=== PATIENT | female | born 1955 | race Caucasian/White ===

== ENCOUNTER 2018-08-05 06:40 | Day surgery (SDC) | payer BC ==
[~2018-08-05] VITALS: Ht 149.9 cm; Wt 97.5 kg
[~2018-08-05 06:40] MED LIST: ALEVE220 MG PO; ASPIRIN EC325 MG PO; HYDROCODON-ACE1 EAC8 PO; NON-ASPIRIN EX500 MG PO; NORCO 5-325 TA1 EACH PO; VICODIN 5-5001 EACH PO
[2018-08-05] MEDS ORDERED: COREG6.25 MG PO (06:59)
[2018-08-05] MEDS ORDERED: LOSARTAN-HCTZ1 EACH PO (06:59)
--- NOTE | 2018-08-05 08:56 | NUR ---
08/05/18 0856 Sheets,Huyen 0839 PT ARRIVED TO PACU AWAKE OFF AND ON, PT WAKES TO VERBAL STIMULI. IV IN RIGHT ARM SUSPECTED INFILTRATION, RN TO MONITOR IV AREA AND SUDATION LEVEL. OTHER IV ATTEMPTS UNSUCCESSFUL, NO EGD OR COLONOSCOPY DONE TODAY. 0850 PT ALSEEP AND SNORING NOTED. PT REPORTS SMALL AMOUNT OF PAIN AT IV SITE IN RIGHT UPPER ARM. NO SWELLING OR BRUISING NOTED AT IV SITE. 0855 PT UNABLE TO STAY AWAKE, PT SITTING IN SEMI FOWLERS AND LARGE AMOUNT OF SNORING NOTED.
--- NOTE | 2018-08-05 09:48 | NUR ---
CALL LIGHT W/IN REACH. CONTINUOUS PULSE OXIMETER IN PLACE. ICED WATER GIVEN.
--- NOTE | 2018-08-05 10:52 | NUR ---
LE 1015: PATIENT'S DAUGHTER PRESENTS TO THE NURSE'S STATION AND ASKS WHEN THE PATIENT IS ABLE TO GET DRESSED. I AM IN TO ASSESS THE PATIENT. PATIENT IS SITTING UP IN BED AND REQUESTS DISCHARGE. DISCHARGE INSTRUCTIONS ARE GIVEN AND PATIENT AND HER DAUGHTER BOTH VERBALIZE UNDERSTANDING. PATIENT IS GETTING DRESSED IN PRESENCE OF HER DAUGHTER. PATIENT TRANSFERS HERSELF TO AND THEN TO PERSONAL VEHICLE AND TOLERATES THAT WELL.
--- NOTE | 2018-08-05 14:07 | NUR ---
PT SEEMS ALERT, ORIENTED AND SUPPORTED BY HER DAUGHTER PAUL. PT MERELY TOLERATED PREP DAY, FIRST SCOPES. PT PLEASANT, HAD FEW QUESTIONS AND DID REQUEST PRAYER. WILL FOLLOW NEEDED
== END 2018-08-05 10:15 | disposition home or self-care (01) ==
LOC: OPS 06:40 → DS 06:40 → OPS 09:45 → DS 09:45 → OPS 10:15
DX: K62.5 Hemorrhage of anus and rectum (principal); R19.7 Diarrhea, unspecified; B20 Human immunodeficiency virus [HIV] disease; I10 Essential (primary) hypertension; E66.9 Obesity, unspecified; Z68.42 Body mass index [BMI] 45.0-49.9, adult; Z53.8 Procedure and treatment not carried out for other reasons
CPT/HCPCS: 99153; G0500; J2250; J3010; J7120

== ENCOUNTER 2019-02-23 15:57 | Emergency (ER) | payer BC ==
[~2019-02-23] VITALS: Ht 149.9 cm; Wt 102.1 kg
--- OUTSIDE RECORDS SUMMARY | ~2019-02-23 | XMS | Encounter Summary ---
Demographics + + + | Address | [address] | | | [place] [address] | + + + | Home Phone | | + + + | Preferred Language | Unknown | + + + | Marital Status | Unknown | + + + | Rastafarian Affiliation | Unknown | + + + | Race | Unknown | + + + | Ethnic Group | Unknown | + + + Author + + + | Author | [facility] | | | and [place] | + + + | Organization | [facility] | | | and [place] | + + + | Address | Unknown | + + + | Phone | Unavailable | + + + Care Team Providers + +------+ + | Care Home Teaching Gr[employer] 8 Teacher Name | Role | Phone | + +------+ + | Ronnie Treadwell MD | PCP | | + +------+ + Reason for Visit + + + | Reason | Comments | + + + | Care Coordination | F/U Appt and Orders | + + + Encounter Details +--------+ + + + + | Date | Type | Department | Care Team | Description | +--------+ + + + + | 02/14/ | Telephone | [facility] | Carol Canales, | Care Coordination | | 2020 | | INFECTIOUS DISEASE | Hotel Yardperson | (F/U Appt and Orders | | | | [address] | | ) | | | | [place] | | | | | | [address] | | | | | | [phone] | | | +--------+ + + + + Social History + +-------+ +--------+------+ | Tobacco Use | Types | Packs/Day | Years | Date | | | | | Used | | + +-------+ +--------+------+ | Former Smoker | | 1 | | | + +-------+ +--------+------+ + + + | Sex Assigned at | Date Recorded | | | | + + + | Not on file | | + + + + + + + | Job Start Date | Occupation | Industry | + + + + | Not on file | Not on file | Not on file | + + + + + + + + | Travel History | Travel Start | Travel End | + + + + + + | No recent travel history available. | + + documented as of this encounter Plan of Treatment Not on filedocumented as of this encounter Visit Diagnoses Not on filedocumented in this encounter"
--- OUTSIDE RECORDS SUMMARY | ~2019-02-23 | XMS | Encounter Summary ---
Demographics + + + | Address | [address] | | | [place] [address] | + + + | Home Phone | | + + + | Preferred Language | Unknown | + + + | Marital Status | Unknown | + + + | Moravian Affiliation | Unknown | + + + | Race | Unknown | + + + | Ethnic Group | Unknown | + + + Author + + + | Author | [facility] | | | and [place] | + + + | Organization | [facility] | | | and [place] | + + + | Address | Unknown | + + + | Phone | Unavailable | + + + Care Team Providers + +------+ + | Care Physiology Teacher Name | Role | Phone | + +------+ + | Ronnie Treadwell MD | PCP | | + +------+ + Reason for Visit +---------+ + | Reason | Comments | +---------+ + | Results | Lab Results/ US STAT Order | +---------+ + Encounter Details +--------+ + + + + | Date | Type | Department | Care Team | Description | +--------+ + + + + | 02/03/ | Telephone | [facility] | Carol Canales, | Results (Lab | | 2019 | | INFECTIOUS DISEASE | Steel Rod Buster | Results/ US STAT | | | | [address] | | Order ) | | | | [place] | | | | | | [address] | | | | | | [phone] | | | +--------+ + + + [...]
--- OUTSIDE RECORDS SUMMARY | ~2019-02-23 | XMS | Encounter Summary ---
Demographics + + + | Address | [address] | | | [place] [address] | + + + | Home Phone | | + + + | Preferred Language | Unknown | + + + | Marital Status | Unknown | + + + | Hindu Affiliation | Unknown | + + + | Race | Unknown | + + + | Ethnic Group | Unknown | + + + Author + + + | Author | [facility] | | | and [place] | + + + | Organization | [facility] | | | and [place] | + + + | Address | Unknown | + + + | Phone | Unavailable | + + + Care Team Providers + +------+ + | Care Fuel Storage Technician Name | Role | Phone | + [...] + + | 02/03/ | Telephone | [facility] | Carol Canales, | Results (Lab | | 2019 | | INFECTIOUS DISEASE | Production Machinist | Results/ US STAT | | | | [address] | | Order ) | | | | [place] | | | | | | [address] | | | | | | [phone] | | | +--------+ + + + [...]
--- OUTSIDE RECORDS SUMMARY | ~2019-02-23 | XMS | Encounter Summary ---
Demographics + + + | Address | [address] | | | [place] [address] | + + + | Home Phone | | + + + | Preferred Language | Unknown | + + + | Marital Status | Unknown | + + + | Jehovah'S Witness Affiliation | Unknown | + + + | Race | Unknown | + + + | Ethnic Group | Unknown | + + + Author + + + | Author | [facility] | | | and [place] | + + + | Organization | [facility] | | | and [place] | + + + | Address | Unknown | + + + | Phone | Unavailable | + + + Care Team Providers + +------+ + | Care Lockstitch Front Maker Name | Role | Phone | + +------+ + | Ronnie Treadwell MD | PCP | | + +------+ + Encounter Details +--------+ + + + + | Date | Type | Department | Care Team | Description | +--------+ + + + + | 02/04/ | Orders Only | [facility] | Ronnie Treadwell V, | | | 2017 | | CONVERSION [address] | MD [address] | | | | | [address] | [place], [place] | | | | | [place], [place] | [address] | | | | | [address] | | | | | | [phone] | | | +--------+ + + + + Social History + +-------+ +--------+------+ | Tobacco Use | Types | Packs/Day | Years | Date | | | | | Used | | + +-------+ +--------+------+ | Never Assessed | | | | | + +-------+ +--------+------+ + [...] Not on filedocumented as of this encounter Procedures + +--------+ + + + | Procedure Name | Priori | Date/Time | Associated Diagnosis | Comments | | | ty | | | | + +--------+ + + + | ECHO INTERPRETATION | Routin | 02/04/2018 | | Results for this | | OF OUTSIDE FILMS | e | 1:57 PM | | procedure are in the | | | | PST | | results section. | + +--------+ + + + documented in this encounter Results ECHO Interpretation of Outside Films (02/04/2018 1:57 PM PST) + + | Specimen | + + | | + + + + + | Impressions | Performed At | + + + | 1. The left ventricle is normal in size, wall thickness and systolic | | | function EF 65-70%. 2. The right ventricle is normal in size and | | | function. 3. No significant valvular pathology. 4. There is no | | | pericardial effusion. | | + + + + + + | Narrative | Performed At | + + + | Patient Name: Sayra Walton Date of : 1955 | | | Performing Physician: Jovan Rangel | | | | | | INDICATIONS Valvular heart disease CONCLUSIONS | | | 1. The left ventricle is normal in size, wall thickness | | | and systolic function EF 65-70%. 2. The right ventricle is normal in | | | size and function. 3. No significant valvular pathology. 4. There is | | | no pericardial effusion. FINDINGS -------- ECG rhythm: Sinus | | | rhythm. Study: A 2-dimensional transthoracic echocardiogram with | | | m-mode, spectral and color flow Doppler was perfomed. Study: This was | | | a technically adequate study. Left Ventricle: Overall left | | | ventricular systolic function is normal with, an EF between 65 - 70 %. | | | Left Ventricle: The left ventricle cavity size is normal. Left | | | Ventricle: Left ventricular wall thickness is normal. Left Ventricle: | | | No regional wall motion abnormalities. Left Ventricle: The diastolic | | | filling pattern is normal for the age of the patient. Right | | | Ventricle: The right ventricle is normal in size and function. Left | | | Atrium: The left atrium is normal in size. Right Atrium: The right | | | atrium is normal in size. Aortic Valve: There is mild aortic valve | | | sclerosis without stenosis. Aortic Valve: There is no evidence of | | | aortic regurgitation. Aortic Valve: There is no evidence of aortic | | | stenosis. Aortic Valve: Aortic valve is mildly thickened. Mitral | | | Valve: The mitral valve is normal. Mitral Valve: There is trace/mild | | | mitral regurgitation. Tricuspid Valve: The tricuspid valve appears | | | structurally normal. Tricuspid Valve: The poor TR signal prevents | | | accurate estimation of pulmonary pressures. Pulmonic Valve: The | | | pulmonic valve is normal. Pulmonic Valve: No significant valvular | | | pathology. Pericardium: There is no pericardial effusion. | | | Pericardium: No pleural effusion seen. IVC/Hepatic Veins: The IVC is | | | normal size (1.5-2.5cm) and collapses >50% with sniff, consistent with | | | central venous pressures of 5-10mmHg. Aorta: The aortic root, | | | ascending aorta and aortic arch are normal in size. MEASUREMENTS | | | Ao asc: 3.34 cm Ao Diam: 3.37 cm Ao sinus: | | | 2.[address] junct: 2.78 cm IVC: 1.95 cm LA Major: 4.56 | | | cm EDV(Teich): 108.32 ml IVSd: 0.94 cm LVIDd: 4.81 cm | | | LVPWd: 0.80 cm LVOT Area: 3.55 cm2 LVOT Diam: 2.12 cm %FS: | | | 36.51 % EF(Teich): 66.17 % ESV(Teich): 36.64 ml LVIDs: | | | 3.05 cm SV(Teich): 71.68 ml RA Major: 4.48 cm RV Major: | | | 8.40 cm RV Minor: 3.31 cm RVIDd: 2.99 cm LVEF MOD A2C: | | | 69.81 % SV MOD A2C: 60.02 ml LVEF MOD A4C: 69.44 % SV MOD | | | A4C: 54.93 ml EF Biplane: 69.41 % LVEDV MOD BP: 84.25 ml | | | LVESV MOD BP: 25.76 ml LVEDV MOD A2C: 85.97 ml LVLd A2C: | | | 8.60 cm LVEDV MOD A4C: 79.09 ml LVLd A4C: 9.03 cm LVESV MOD | | | A2C: 25.95 ml LVLs A2C: 7.03 cm LVESV MOD A4C: 24.16 ml | | | LVLs A4C: 7.50 cm LAESV(A-L): 37.24 ml LAESV Index (A-L): | | | 19.60 ml/m2 LAAs A2C: 12.24 cm2 LAESV A-L A2C: 29.98 ml LALs | | | A2C: 4.24 cm LAAs A4C: 15.20 cm2 LAESV A-L A4C: 39.10 ml | | | LALs A4C: 5.02 cm RAAs: 12.16 cm2 RAESV A-L: 28.10 ml | | | RAESV MOD: 27.02 ml RALs: 4.46 cm TAPSE: 3.02 cm AV maxPG: | | | 15.90 mmHg AV meanP.64 mmHg AV Vmax: 1.99 m/s AV | | | Vmean: 1.27 m/s AV VTI: 37.73 cm ROBERT Vmax: 1.98 cm2 ROBERT | | | (VTI): 2.21 cm2 AVAI Vmax: 0.00 cm2/m2 AVAI (VTI): 0.00 | | | cm2/m2 LVOT maxP.95 mmHg LVOT meanP.12 mmHg LVSI | | | Dopp: 44.01 ml/m2 LVSV Dopp: 83.63 ml LVOT Vmax: 1.11 m/s | | | LVOT Vmean: 0.84 m/s LVOT VTI: 23.55 cm MV A Mg: 0.96 m/s | | | MV Dec Rush: 2.58 m/s2 MV DecT: 324.80 ms MV E Mg: 0.83 | | | m/s MV E/A Ratio: 0.86 MV PHT: 94.19 ms MVA By PHT: 2.33 | | | cm2 Septal e': 0.04 m/s Septal E/e': 19.65 Lateral e': | | | 0.05 m/s Lateral E/e': 16.27 RAP: 5 mmHg RVSP: 25.06 mmHg | | | TR maxP.06 mmHg TR Vmax: 2.23 m/s House Superintendent: REINALDO | | | Authenticated by: Jovan Rangel Report Date/Time: 02-11-2018 14:45:5 | | | | | + + + + + | Procedure Note | + + | Ben Suero Conversion - 09/30/2018 4:51 PM PDT Patient Name: Ranjeet Walton of | | : 1955 Performing Physician: Jovan | | [place] INDICATIONS------ | | -----Valvular heart disease CONCLUSIONS 1. The left ventricle is normal in | | size, wall thickness and systolic function EF 65-70%.2. The right ventricle is normal in | | size and function.3. No significant valvular pathology.4. There is no pericardial | | effusion. FINDINGS--------ECG rhythm: Sinus rhythm.Study: A 2-dimensional transthoracic | | echocardiogram with m-mode, spectral and color flow Doppler was perfomed.Study: This was | | a technically adequate study.Left Ventricle: Overall left ventricular systolic function | | is normal with, an EF between 65 - 70 %.Left Ventricle: The left ventricle cavity size | | is normal.Left Ventricle: Left ventricular wall thickness is normal.Left Ventricle: No | | regional wall motion abnormalities.Left Ventricle: The diastolic filling pattern is | | normal for the age of the patient.Right Ventricle: The right ventricle is normal in size | | and function.Left Atrium: The left atrium is normal in size.Right Atrium: The right | | atrium is normal in size.Aortic Valve: There is mild aortic valve sclerosis without | | stenosis.Aortic Valve: There is no evidence of aortic regurgitation.Aortic Valve: There | | is no evidence of aortic stenosis.Aortic Valve: Aortic valve is mildly thickened.Mitral | | Valve: The mitral valve is normal.Mitral Valve: There is trace/mild mitral | | regurgitation.Tricuspid Valve: The tricuspid valve appears structurally normal.Tricuspid | | Valve: The poor TR signal prevents accurate estimation of pulmonary pressures.Pulmonic | | Valve: The pulmonic valve is normal.Pulmonic Valve: No significant valvular | | pathology.Pericardium: There is no pericardial effusion.Pericardium: No pleural effusion | | seen.IVC/Hepatic Veins: The IVC is normal size (1.5-2.5cm) and collapses >50% with | | sniff, consistent with central venous pressures of 5-10mmHg.Aorta: The aortic root, | | ascending aorta and aortic arch are normal in size. MEASUREMENTS Ao asc: | | 3.34 cmAo Diam: 3.37 cmAo sinus: 2.[address] junct: 2.78 cmIVC: 1.95 cmLA | | Major: 4.56 cmEDV(Teich): 108.32 mlIVSd: 0.94 cmLVIDd: 4.81 cmLVPWd: 0.80 | | cmLVOT Area: 3.55 [id number] Diam: 2.12 cm%FS: 36.51 %EF(Teich): 66.17 %ESV(Teich): | | 36.64 mlLVIDs: 3.05 cmSV(Teich): 71.68 mlRA Major: 4.48 cmRV Major: 8.40 cmRV | | Minor: 3.31 cmRVIDd: 2.99 cmLVEF MOD A2C: 69.81 %SV MOD A2C: 60.02 mlLVEF MOD | | A4C: 69.44 %SV MOD A4C: 54.93 mlEF Biplane: 69.41 %LVEDV MOD BP: 84.25 mlLVESV | | MOD BP: 25.76 mlLVEDV MOD A2C: 85.97 mlLVLd A2C: 8.60 cmLVEDV MOD A4C: 79.09 | | mlLVLd A4C: 9.03 cmLVESV MOD A2C: 25.95 mlLVLs A2C: 7.03 cmLVESV MOD A4C: 24.16 | | mlLVLs A4C: 7.50 cmLAESV(A-L): 37.24 mlLAESV Index (A-L): 19.60 ml/m2LAAs A2C: | | 12.24 [id number] A-L A2C: 29.98 mlLALs A2C: 4.24 cmLAAs A4C: 15.20 [id number] A-L A4C: | | 39.10 mlLALs A4C: 5.02 cmRAAs: 12.16 [id number] A-L: 28.10 mlRAESV MOD: 27.02 | | mlRALs: 4.46 cmTAPSE: 3.02 cmAV maxP.90 mmHgAV meanP.64 mmHgAV Vmax: | | 1.99 m/Junior Vmean: 1.27 m/Junior VTI: 37.73 cmAVA Vmax: 1.98 cm2AVA (VTI): 2.21 | | [id number] Vmax: 0.00 cm2/m2AVAI (VTI): 0.00 cm2/m2LVOT maxP.95 mmHgLVOT meanPG: | | 3.12 mmHgLVSI Dopp: 44.01 ml/m2LVSV Dopp: 83.63 mlLVOT Vmax: 1.11 m/sLVOT Vmean: | | 0.84 m/sLVOT VTI: 23.55 cmMV A Mg: 0.96 m/sMV Dec Rush: 2.58 m/s2MV DecT: | | 324.80 msMV E Mg: 0.83 m/sMV E/A Ratio: 0.86MV PHT: 94.19 msMVA By PHT: 2.33 | | [id number] e': 0.04 m/sSeptal E/e': 19.65Lateral e': 0.05 m/sLateral E/e': | | 16.27RAP: 5 mmHgRVSP: 25.06 mmHgTR maxP.06 mmHgTR Vmax: 2.23 m/s | | House Superintendent: DHAuthenticated by: Jovan Mockort Date/Time: 02-11-2018 14:45:5 | | IMPRESSION: 1. The left ventricle is normal in size, wall thickness and systolic | | function EF 65-70%.2. The right ventricle is normal in size and function.3. No | | significant valvular pathology.4. There is no pericardial effusion. | | | |Ao asc: 3.34 cm | |Ao Diam: 3.37 cm | |Ao sinus: 2.80 cm | |Ao st junct: 2.78 cm | |IVC: 1.95 cm | |LA Major: 4.56 cm | |EDV(Teich): 108.32 ml | |IVSd: 0.94 cm | |LVIDd: 4.81 cm | |LVPWd: 0.80 cm | |LVOT Area: 3.55 cm2 | |LVOT Diam: 2.12 cm | |%FS: 36.51 % | |EF(Teich): 66.17 % | |ESV(Teich): 36.64 ml | |LVIDs: 3.05 cm | |SV(Teich): 71.68 ml | |RA Major: 4.48 cm | |RV Major: 8.40 cm | |RV Minor: 3.31 cm | |RVIDd: 2.99 cm | |LVEF MOD A2C: 69.81 % | |SV MOD A2C: 60.02 ml | |LVEF MOD A4C: 69.44 % | |SV MOD A4C: 54.93 ml | |EF Biplane: 69.41 % | |LVEDV MOD BP: 84.25 ml | |LVESV MOD BP: 25.76 ml | |LVEDV MOD A2C: 85.97 ml | |LVLd A2C: 8.60 cm | |LVEDV MOD A4C: 79.09 ml | |LVLd A4C: 9.03 cm | |LVESV MOD A2C: 25.95 ml | |LVLs A2C: 7.03 cm | |LVESV MOD A4C: 24.16 ml | |LVLs A4C: 7.50 cm | |LAESV(A-L): 37.24 ml | |LAESV Index (A-L): 19.60 ml/m2 | |LAAs A2C: 12.24 cm2 | |LAESV A-L A2C: 29.98 ml | |LALs A2C: 4.24 cm | |LAAs A4C: 15.20 cm2 | |LAESV A-L A4C: 39.10 ml | |LALs A4C: 5.02 cm | |RAAs: 12.16 cm2 | |RAESV A-L: 28.10 ml | |RAESV MOD: 27.02 ml | |RALs: 4.46 cm | |TAPSE: 3.02 cm | |AV maxP.90 mmHg | |AV meanP.64 mmHg | |AV Vmax: 1.99 m/s | |AV Vmean: 1.27 m/s | |AV VTI: 37.73 cm | |ROBERT Vmax: 1.98 cm2 | |ROBERT (VTI): 2.21 cm2 | |AVAI Vmax: 0.00 cm2/m2 | |AVAI (VTI): 0.00 cm2/m2 | |LVOT maxP.95 mmHg | |LVOT meanP.12 mmHg | |LVSI Dopp: 44.01 ml/m2 | |LVSV Dopp: 83.63 ml | |LVOT Vmax: 1.11 m/s | |LVOT Vmean: 0.84 m/s | |LVOT VTI: 23.55 cm | |MV A Mg: 0.96 m/s | |MV Dec Rush: 2.58 m/s2 | |MV DecT: 324.80 ms | |MV E Mg: 0.83 m/s | |MV E/A Ratio: 0.86 | |MV PHT: 94.19 ms | |MVA By PHT: 2.33 cm2 | |Septal e': 0.04 m/s | |Septal E/e': 19.65 | |Lateral e': 0.05 m/s | |Lateral E/e': 16.27 | |RAP: 5 mmHg | |RVSP: 25.06 mmHg | |TR maxP.06 mmHg | |TR Vmax: 2.23 m/s | | | |House Superintendent: REINALDO | |Authenticated by: Jovan Rangel | |Report Date/Time: 02-11-2018 14:45:5 | | | |IMPRESSION: | |1. The left ventricle is normal in size, wall thickness and systolic function EF 65-70%. | |2. The right ventricle is normal in size and function. | |3. No significant valvular pathology. | |4. There is no pericardial effusion. | + + documented in this encounter Visit Diagnoses Not on filedocumented in this encounter"
--- OUTSIDE RECORDS SUMMARY | ~2019-02-23 | XMS | Encounter Summary ---
Demographics + + + | Address | [address] | | | [place] [address] | + + + | Home Phone | | + + + | Preferred Language | Unknown | + + + | Marital Status | Unknown | + + + | Jewish Affiliation | Unknown | + + + | Race | Unknown | + + + | Ethnic Group | Unknown | + + + Author + + + | Author | [facility] | | | and [place] | + + + | Organization | [facility] | | | and [place] | + + + | Address | Unknown | + + + | Phone | Unavailable | + + + Care Team Providers + +------+ + | Care Vehicle Fare Collector Name | Role | Phone | + +------+ + | Ronnie Treadwell MD | PCP | | + +------+ + Reason for Visit +---------+ + | Reason | Comments | +---------+ + | Results | Hepatic Function Panel | +---------+ + Encounter Details +--------+ + + + + | Date | Type | Department | Care Team | Description | +--------+ + + + + | 02/04/ | Documentati | [facility] | Hernesto Vazquez DO | Results (Hepatic | | 2019 | on | INFECTIOUS DISEASE | [address] | Function Panel ) | | | | [address] | [place] [address] | | | | | [place], [place] | [phone] | | | | | [address] | | | | | | [phone] | | | +--------+ + + + [...] + + documented as of this encounter Progress Notes Awilda Thao, Supervisor Shipping - 02/04/2019 10:10 AM PSTReceived labs for Hepat ic Function Panel on 01/27/2019 from [facility]. Abstracted into [facility] and sent to scan. Awilda Cuenca CMA. 19 10:28 AM PSTdocumented in this encounter Plan of Treatment Not on filedocumented as of this encounter Procedures + +--------+ + + + | Procedure Name | Priori | Date/Time | Associated Diagnosis | Comments | | | ty | | | | + +--------+ + + + | HEPATIC FUNCTION | Routin | 01/18/2019 | | Results for this | | PANEL | e | 4:25 PM | | procedure are in the | | | | PST | | results section. | + +--------+ + + + documented in this encounter Results Hepatic Function Panel (01/18/2019 4:25 PM PST) + + + + + + | Component | Value | Ref Range | Performed | Pathologist | | | | | At | Signature | + + + + + + | PROTEIN | 8.2 | 6.0 - 8.3 g/dL | EXTERNAL | | | ([facility]) | | | LAB | | + + + + + + | Albumin | 3.4 (A) | 3.5 - 5.0 g/dL | EXTERNAL | | | | | | LAB | | + + + + + + | Globulin | 4.8 (A) | 1.8 - 3.5 g/dL | EXTERNAL | | | | | | LAB | | + + + + + + | A/G Ratio | 0.7 (A) | 1.1 - 2.4 g/dL | EXTERNAL | | | | | | LAB | | + + + + + + | Bilirubin | 1.3 (A) | 0.0 - 1.2 mg/dL | EXTERNAL | | | Total | | | LAB | | + + + + + + | Bilirubin, | 0.50 (A) | 0.00 - 0.30 | EXTERNAL | | | Direct | | mg/dl | LAB | | + + + + + + | Bilirubin | 0.8 | 0.0 - 1.0 mg/dL | EXTERNAL | | | Indirect | | | LAB | | + + + + + + | Alkaline | 101 | 31 - 130 U/L | EXTERNAL | | | Phosphatase | | | LAB | | + + + + + + | AST | 46 (A) | 13 - 39 U/L | EXTERNAL | | | | | | LAB | | + + + + + + | ALT | 40 | 7 - 52 U/L | EXTERNAL | | | | | | LAB | | + + + + + + | AFP Tumor | 15.6 (A) | 0.0 - 7.0 IU/mL | EXTERNAL | | | Marker | | | LAB | | + + + + + + + + | Specimen | + + | Blood | + + + +---------+ + + | Performing | Address | City/State/Zipcode | Phone Number | | Organization | | | | + +---------+ + + | EXTERNAL LAB | | | | + +---------+ + + documented in this encounter Visit Diagnoses Not on filedocumented in this encounter"
--- OUTSIDE RECORDS SUMMARY | ~2019-02-23 | XMS | Clinical Summary ---
Demographics + + + | Address | [address] | | | [place] [address] | + + + | Home Phone | | + + + | Preferred Language | Unknown | + + + | Marital Status | Unknown | + + + | Presybeterian Affiliation | Unknown | + + + | Race | Unknown | + + + | Ethnic Group | Unknown | + + + Author + + + | Author | [facility] (Historical as of | | | 09-25-18) | + + + | Organization | [facility] (Historical as of | | | 09-25-18) | + + + | Address | Unknown | + + + | Phone | Unavailable | + + + Support + + +---------+ + | Name | Relationship | Address | Phone | + + +---------+ + | Rosie Pham | ECON | Unknown | | + + +---------+ + Care Team Providers + +------+ + | Care It Generalist Name | Role | Phone | + +------+ + | Ronnie Treadwell MD | PP | | + +------+ + Allergies Not on File Current Medications + +------+-------+---------+------+------+-------+ | Prescription | Sig. | Disp. | Refills | Star | End | Statu | | | | | | t | Date | s | | | | | | Date | | | + +------+-------+---------+------+------+-------+ | carvedilol (COREG) | | | | 12/1 | | Activ | | 6.25 MG tablet | | | | 6/20 | | e | | | | | | 18 | | | + +------+-------+---------+------+------+-------+ | clobetasol | | | | 12/2 | | Activ | | propionate | | | | 0/20 | | e | | (TEMOVATE) 0.05 % | | | | 18 | | | | ointment | | | | | | | + +------+-------+---------+------+------+-------+ | losartan (COZAAR) | | | | 12/1 | | Activ | | 50 MG tablet | | | | 5/20 | | e | | | | | | 18 | | | + +------+-------+---------+------+------+-------+ Active Problems + + + | Problem | Noted Date | + + + | Chronic hepatitis C, GT 1a, VL 10.5 million IU/mL, probable | 02/19/2018 | | cirrhosis | | + + + | Other cirrhosis of liver (HCC) | 02/19/2018 | + + + Family History + + +------+ + | Medical History | Relation | Name | Comments | + + +------+ + | Coronary art dis | Father | | | + + +------+ + | Diabetes type II | Father | | | + + +------+ + | Coronary art dis | Mother | | | + + +------+ + | Diabetes type II | Sister | | | + + +------+ + + +------+--------+ + | Relation | Name | Status | Comments | + +------+--------+ + | Father | | | | + +------+--------+ + | Mother | | | | + +------+--------+ + | Sister | | | | + +------+--------+ + Social History + +-------+ +--------+ + | Tobacco Use | Types | Packs/Day | Years | Date | | | | | Used | | + +-------+ +--------+ + | Former Smoker | | 1 | 50 | Quit: 02/19/2011 | + +-------+ +--------+ + + + +---------+ + | Alcohol Use | Drinks/We | oz/Week | Comments | | | ek | | | + + +---------+ + | No | | | | + + +---------+ + + + + | Sex Assigned at | Date Recorded | | | | + + + | Not on file | | + + + Last Filed Vital Signs + + + + | Vital Sign | Reading | Time Taken | + + + + | Blood Pressure | 129/79 | 02/19/2018 1:37 PM PST | + + + + | Pulse | 62 | 02/19/2018 1:37 PM PST | + + + + | Temperature | 36.4 C (97.6 F) | 02/19/2018 1:37 PM PST | + + + + | Respiratory Rate | 16 | 02/19/2018 1:37 PM PST | + + + + | Oxygen Saturation | 96% | 02/19/2018 1:37 PM PST | + + + + | Inhaled Oxygen | - | - | | Concentration | | | + + + + | Weight | 98.4 kg (217 lb) | 02/19/2018 1:37 PM PST | + + + + | Height | 149.9 cm (4' 11") | 02/19/2018 1:37 PM PST | + + + + | Body Mass Index | 43.83 | 02/19/2018 1:37 PM PST | + + + + Plan of Treatment + + + + + | Health Maintenance | Due Date | Last Done | Comments | + + + + + | Vaccine: | | | | | Dtap/Tdap/Td (1 - | 7 | | | | Tdap) | | | | + + + + + | Vaccine: | | | | | Pneumococcal 19-64 | 7 | | | | (PPSV23 only) Medium | | | | | Risk (1 of 1 - | | | | | PPSV23) | | | | + + + + + | Cervical Cancer | | | | | Screening (Pap) | 8 | | | + + + + + | Breast Cancer | | | | | Screening | 8 | | | | (Mammogram) | | | | + + + + + | Colon Cancer | | | | | Screening | 8 | | | | (Colonoscopy) | | | | + + + + + | Vaccine: Zoster (1 | | | | | of 2) | 8 | | | + + + + + | Lung Cancer | | | | | Screening | 3 | | | + + + + + | Vaccine: Influenza | | | | | (#1) | 9 | | | + + + + + Results Not on filefrom Last 3 Months Insurance +---------+--------+ +------+-------+---------+ | Payer | Benefi | Subscriber | Type | Phone | Address | | | t Plan | ID | | | | | | / | | | | | | | Group | | | | | +---------+--------+ +------+-------+---------+ | [employer] | BLUE | [id number] | | | | | | CROSS | 1 | | | | | | BLUE | | | | | | | SHIELD | | | | | | | FEP | | | | | +---------+--------+ +------+-------+---------+ + +--------+ +--------+ + + | Guarantor Name | Accoun | Relation to | Date | Phone | Billing Address | | | t Type | Patient | of | | | | | | | | | | + +--------+ +--------+ + + | SAYRA WALTON I | Person | Self | [birth year] | Home: | [address] | | | al/Fam | | [phone] [address] [place] | | | [place] | | [phone] | + +--------+ +--------+ + +
--- OUTSIDE RECORDS SUMMARY | ~2019-02-23 | XMS | Clinical Summary ---
Demographics + + + | Address | [address] | | | [place] [address] | + + + | Home Phone | | + + + | Preferred Language | Unknown | + + + | Marital Status | Unknown | + + + | Bahai Affiliation | Unknown | + + + | Race | Unknown | + + + | Ethnic Group | Unknown | + + + Author + + + | Author | [facility] | | | and [place] | + + + | Organization | [facility] | | | and [place] | + + + | Address | Unknown | + + + | Phone | Unavailable | + + + Care Team Providers + +------+ + | Care Flight Steward Name | Role | Phone | + +------+ + | Ronnie Treadwell MD | PCP | | + +------+ + Allergies No Known Allergies Medications + + + +---------+------+------+-------+ | Medication | Sig | Dispensed | Refills | Star | End | Statu | | | | | | t | Date | s | | | | | | Date | | | + + + +---------+------+------+-------+ | carvedilol (COREG) | | | 0 | 12/1 | | Activ | | 6.25 mg tablet | | | | 6/20 | | e | | | | | | 18 | | | + + + +---------+------+------+-------+ | clobetasol | | | 0 | 12/2 | | Activ | | (TEMOVATE) 0.05% | | | | 0/20 | | e | | ointment | | | | 18 | | | + + + +---------+------+------+-------+ | losartan (COZAAR) | | | 0 | 12/ | | Activ | | 50 mg tablet | | | | 06/28 | | e | | | | | | 18 | | | + + + +---------+------+------+-------+ | fish oil 1,000 mg | Take 1,000 mg by | | 0 | | | Activ | | capsule | mouth Daily. | | | | | e | + + + +---------+------+------+-------+ | Multiple | Take by mouth | | 0 | | | Activ | | Vitamins-Minerals | Daily. | | | | | e | | (MULTIVITAMIN ADULT | | | | | | | | PO) | | | | | | | + + + +---------+------+------+-------+ | | Take 3 tablets by | 252 | 0 | 10/0 | 01/0 | Expir | | glecaprevir-pibrenta | mouth daily (with | tablet | | 10/29 | 02/28 | ed | | svir (MAVYRET) | breakfast) for 84 | | | 19 | 20 | | | 100-40 mg per tablet | days. | | | | | | + + + +---------+------+------+-------+ Active Problems + + + | Problem | Noted Date | + + + | Chronic hepatitis C, GT 1a, VL 10.5 million IU/mL, probable | 02/19/2018 | | cirrhosis | | + + + | Other cirrhosis of liver | 02/19/2018 | + + + Encounters +--------+ + + + + | Date | Type | Specialty | Care Team | Description | +--------+ + + + + | 02/14/ | Telephone | Infectious Diseases | Carol Canales, | Care Coordination | | 2019 | | | Camera Systems Engineer | (F/U Appt and Orders | | | | | | ) | +--------+ + + + + | 02/14/ | Documentati | Infectious Diseases | Hernesto Vazquez DO | | | 2019 | on | | | | +--------+ + + + + | 02/11/ | Telephone | Infectious Diseases | Carol Canales, | Care Coordination | 2019 | | | Camera Systems Engineer | (US Report Request. | | | | | | [facility]) | +--------+ + + + + | 02/04/ | Documentati | Infectious Diseases | Hernesto Vazquez DO | Results (Hepatic | | 2019 | on | | | Function Panel ) | +--------+ + + + + | 02/03/ | Telephone | Infectious Diseases | Carol Canales, | Results (Lab | | 2018 | | | Camera Systems Engineer | Results/ US STAT | | | | | | Order ) | +--------+ + + + + | 01/27/ | Office | Infectious Diseases | Hernesto Vazquez DO | Chronic hepatitis C, | | 2019 | Visit | | | GT 1a, VL 10.5 | | | | | | million IU/mL, | | | | | | probable cirrhosis | | | | | | (Primary Dx); Other | | | | | | cirrhosis of liver | | | | | | (HCC) | +--------+ + + + + from Last 3 Months Family History + + +------+ + | Medical History | Relation | Name | Comments | + + +------+ + | Coronary artery | Father | | | | disease | | | | + + +------+ + | Diabetes, NIDDM | Father | | | + + +------+ + | Coronary artery | Mother | | | | disease | | | | + + +------+ + | Diabetes, NIDDM | Sister | | | + + +------+ + + +------+--------+ + | Relation | Name | Status | Comments | + +------+--------+ + | Father | | | | + +------+--------+ + | Mother | | | | + +------+--------+ + | Sister | | | | + +------+--------+ + Social History + +-------+ +--------+------+ | [...] recent travel history available. | + + Last Filed Vital Signs + + + + + | Vital Sign | Reading | Time Taken | Comments | + + + + + | Blood Pressure | 139/82 | 01/27/2019 1:59 PM | | | | | PST | | + + + + + | Pulse | 62 | 01/27/2019 1:59 PM | | | | | PST | | + + + + + | Temperature | 36.3 C (97.4 F) | 01/27/2019 1:59 PM | | | | | PST | | + + + + + | Respiratory Rate | 16 | 01/27/2019 1:59 PM | | | | | PST | | + + + + + | Oxygen Saturation | 96% | 01/27/2019 1:59 PM | | | | | PST | | + + + + + | Inhaled Oxygen | - | - | | | Concentration | | | | + + + + + | Weight | 101.2 kg (223 lb) | 01/27/2019 1:59 PM | | | | | PST | | + + + + + | Height | 149.9 cm (4' 11") | 02/19/2018 1:42 PM | | | | | PST | | + + + + + | Body Mass Index | 45.04 | 02/19/2018 1:42 PM | | | | | PST | | + + + + + Plan of Treatment + + + + + | Health Maintenance | Due Date | Last Done | Comments | + + + + + | Vaccine: | | | | | Pneumococcal 19-64 | 4 | | | | (1 of 1 - PPSV23) | | | | + + + + + | Vaccine: | | | | | Dtap/Tdap/Td (1 - | 9 | | | | Tdap) | | | | + + + + + | Cervical Cancer | | | | | Screening (Pap) | 8 | | | + + + + + | Colorectal Cancer | | | | | Screening [...] | + + + + + | Hepatitis C | Completed | 01/27/2019, 11/17/2018, | | | Screening | | 09/24/2018, Additional history | | | | | exists | | + + + + + Procedures + +--------+ + + + | [...] section. | + +--------+ + + + from Last 3 Months Results Hepatic Function Panel (01/18/2019 4:25 PM [...] | | | + +---------+ + + from Last 3 Months Insurance +---------+--------+ +--------+ +---------+------+ | Payer | Benefi | Subscriber | Effect | Phone | Address | Type | | | t Plan | ID | ravin | | | | | | / | | Dates | | | | | | Group | | | | | | +---------+--------+ +--------+ +---------+------+ | PREMERA | PREMER | [id number] | 02/09/19 | [phone] | | PPO | | | A | 1 | 16-Pre | 0 | | | | | PREFER | | sent | | | | | | RED | | | | | | +---------+--------+ +--------+ +---------+------+ + +--------+ +--------+ + + | Guarantor Name | Accoun | Relation to | Date | Phone | Billing Address | | | t Type | Patient | of | | | | | | | | | | + +--------+ +--------+ + + | Sayra Walton I | Person | Self [birth year] | [address] [place] | | | al/Fam | | 1956 | [phone] | [place] [address] | | | [place] | | | 5 (Home) | | + +--------+ +--------+ + + Advance Directives + + + + + | Type | Date Recorded | Patient | Explanation | | | | Security Rep | | + + + + + | Power of | | | | | Sound Truck Operator | | | | + + + + + | Advance | | | | | Directive | | | | + + + + +
--- OUTSIDE RECORDS SUMMARY | ~2019-02-23 | XMS | Encounter Summary ---
Demographics + + + | Address | [address] | | | [place] [address] | + + + | Home Phone | | + + + | Preferred Language | Unknown | + + + | Marital Status | Unknown | + + + | Nondenominational Affiliation | Unknown | + + + | Race | Unknown | + + + | Ethnic Group | Unknown | + + + Author + + + | Author | [facility] | | | and [place] | + + + | Organization | [facility] | | | and [place] | + + + | Address | Unknown | + + + | Phone | Unavailable | + + + Care Team Providers + +------+ + | Care Recreation Facility Manager Name | Role | Phone | + +------+ + | Ronnie Treadwell MD | PCP | | + +------+ + Reason for Visit + + + | Reason | Comments | + + + | Follow-up | HCV | + + + Encounter Details +--------+---------+ + + + | Date | Type | Department | Care Team | Description | +--------+---------+ + + + | 11/17/ | Office | [facility] | Henresto Vazquez DO | Chronic hepatitis C, | | 2019 | Visit | INFECTIOUS DISEASE | [address] | GT 1a, VL 10.5 | | | | [address] | [place] [address] | million IU/mL, | | | | [place], [place] | [phone] | probable cirrhosis | | | | [address] | | (Primary Dx); Other | | | | [phone] | | cirrhosis of liver | | | | | | (HCC) | +--------+---------+ + + + Social History + +-------+ [...] + + documented as of this encounter Last Filed Vital Signs + + + + + | Vital Sign | Reading | Time Taken | Comments | + + + + + | Blood Pressure | 104/55 | 11/17/2018 2:45 PM | 99/36 R arm | | | | PDT | | + + + + + | Pulse | 65 | 11/17/2018 2:45 PM | | | | | PDT | | + + + + + | Temperature | 36.9 C (98.4 F) | 11/17/2018 2:45 PM | | | | | PDT | | + + + + + | Respiratory Rate | 16 | 11/17/2018 2:45 PM | | | | | PDT | | + + + + + | Oxygen Saturation | 96% | 11/17/2018 2:45 PM | | | | | PDT | | + + + + + | Inhaled Oxygen | - | - | | | Concentration | | | | + + + + + | Weight | 100.5 kg (221 lb 9.6 | 11/17/2018 2:45 PM | | | | oz) | PDT | | + + + + + | Height | - | - | | + + + + + | Body Mass Index | 44.76 | 02/19/2018 1:42 PM | | | | | PST | | + + + + + documented in this encounter Patient Instructions Patient Instructions Hernesto Vazquez DO - 11/17/2018 3:20 PM PDTCall when you receive your me dication. We will notify you when to start your medication and when to have your labs [facility]. documented in this encounter Progress Notes Hernesto Vazquez DO - 11/17/2018 3:20 PM PDT Subjective Patient ID: Sayar Walton is a 63 y.o. female. Chief complaint: Follow-up hepatitis C, cirrhosis This is a pleasant 63-year-old female who was seen for consultation in February 2018 for chr onic hepatitis C, genotype 1a with baseline viral load 10,500,000 international units/mL. T he patient's initial screening included a fiber sure that was consistent with cirrhosis. Th e patient indicated that she had an upcoming colonoscopy scheduled for routine [facility], and we contacted her drawer maker to request upper endoscopy for variceal walter zhao. This has been performed and the patient has been cleared to proceed with treatment. The patient presents for follow-up today and reports that she has been feeling well. She de nies any new symptoms of concern. The following elements of the patient's history were reviewed and updated as appropriate. T hey are available elsewhere in the patient record. allergies, current medications, past med ical history, past social history and problem list Review of Systems Constitutional: Negative for chills and fever. Respiratory: Negative for cough and shortness of breath. Gastrointestinal: Negative for diarrhea and vomiting. Skin: Negative for rash. Objective There were no vitals taken for this visit. Physical Exam Constitutional: She is oriented to person, place, and time. She appears well-developed and well-nourished. Neurological: She is alert and oriented to person, place, and time. Skin: Skin is warm and dry. Psychiatric: She has a normal mood and affect. Vitals reviewed. Assessment /Plan 1. Chronic hepatitis C, GT 1a, VL 10.5 million IU/mL, probable cirrhosis The patient will require a 12-week course of Harvoni, Mavyret or Epclusa, with Mavyret most likely to be effective in the setting of cirrhosis. Either of these regimens requires docu mentation of hepatitis B status, so we will need to verify with primary care that she did berkowitz ve hepatitis B testing with her initial work-up. If not, we will need to send her to the [facility] for hepatitis B surface antigen, surface antibody and core antibody prior to starting coral tment. As long as that testing is satisfactory, Mavyret should be started as soon as her dr fernandez are available to her. Follow-up labs should be collected on day 28 and we will follow-u p in about 1 to 2 weeks after that to review results. - Hepatitis C PCR Qualitative; Future - Hepatic Function Panel; Future 2. Other cirrhosis of liver (HCC) The patient was advised that she will have an ongoing lifelong need for hepatocellular carc inoma screening with blood AFP test and limited abdominal ultrasound every 6 months. We willem l check these for the first time with her follow-up labs after starting treatment. - Hepatic Function Panel; Future - AFP, Tumor Marker Serial; Future - US Abdomen Limited; Future documented in this encoun ter Plan of Treatment + +---------+--------+ + + | Name | Type | Priori | Associated Diagnoses | Order Schedule | | | | ty | | | + +---------+--------+ + + | Hepatitis C PCR | Lab | Routin | Chronic hepatitis | Expected: | | Qualitative | | e | C, GT 1a, VL 10.5 | 11/17/2018, Expires: | | | | | million IU/mL, | 11/18/2019 | | | | | probable cirrhosis | | + +---------+--------+ + + | Hepatic Function | Lab | Routin | Chronic hepatitis | Expected: | | Panel | | e | C, GT 1a, VL 10.5 | 11/17/2018, Expires: | | | | | million IU/mL, | 11/18/2019 | | | | | probable cirrhosis | | | | | | Other cirrhosis of | | | | | | liver (HCC) | | + +---------+--------+ + + | AFP, Tumor Marker | Lab | Routin | Other cirrhosis of | Expected: | | Serial | | e | liver (HCC) | 11/17/2018, Expires: | | | | | | 11/18/2019 | + +---------+--------+ + + | US Abdomen Limited | Imaging | Routin | Other cirrhosis of | Expected: | | | | e | liver (HCC) | 11/17/2018, Expires: | | | | | | 11/18/2019 | + +---------+--------+ + + documented as of this encounter Visit Diagnoses + + | Diagnosis | + + | Chronic hepatitis C, GT 1a, VL 10.5 million IU/mL, probable cirrhosis - Primary | + + | Other cirrhosis of liver (HCC) | + + documented in this encounter"
--- OUTSIDE RECORDS SUMMARY | ~2019-02-23 | XMS | Encounter Summary ---
Demographics + + + | Address | [address] | | | [place] [address] | + + + | Home Phone | | + + + | Preferred Language | Unknown | + + + | Marital Status | Unknown | + + + | Pentecostalism Affiliation | Unknown | + + + | Race | Unknown | + + + | Ethnic Group | Unknown | + + + Author + + + | Author | [facility] | | | and [place] | + + + | Organization | [facility] | | | and [place] | + + + | Address | Unknown | + + + | Phone | Unavailable | + + + Care Team Providers + +------+ + | Care Lna Name | Role | Phone | + +------+ + | Ronnie Treadwell MD | PCP | | + +------+ + Encounter Details +--------+ + + + + | Date | Type | Department | Care Team | Description | +--------+ + + + + | 02/14/ | Documentati | [facility] | Hernesto Vazquez DO | | | 2020 | on | INFECTIOUS DISEASE | [address] | | | | | [address] | [place] [address] | | | | | [place], [place] | [phone] | | | | | [address] | | | | | | [phone] | | | +--------+ + + + [...] documented as of this encounter Progress Notes Hernesto Vazquez DO - 02/14/2019 2:49 PM PST Please schedule for follow-up in late July or early August, with ultrasound labs to be perfor med at least 2 days prior to the appointment. See orders. documented in this encoun ter Plan of Treatment + +---------+--------+ + + | Name | Type | Priori | Associated Diagnoses | Order Schedule | | | | ty | | | + +---------+--------+ + + | AFP, Tumor Marker | Lab | Routin | Hepatic cirrhosis, | Expected: | | Serial | | e | unspecified hepatic | 07/24/2019, Expires: | | | | | cirrhosis type, | 02/15/2020 | | | | | unspecified whether | | | | | | ascites present | | | | | | (HCC) | | + +---------+--------+ + + | US Abdomen Limited | Imaging | Routin | Hepatic cirrhosis, | Expected: | | | | e | unspecified hepatic | 07/24/2019, Expires: | | | | | cirrhosis type, | 02/15/2020 | | | | | unspecified whether | | | | | | ascites present | | | | | | (HCC) | | + +---------+--------+ + + documented as of this encounter Visit Diagnoses + + | Diagnosis | + + | Hepatic cirrhosis, unspecified hepatic cirrhosis type, unspecified whether ascites | | present (HCC) - Primary | + + documented in this encounter"
--- OUTSIDE RECORDS SUMMARY | ~2019-02-23 | XMS | Encounter Summary ---
Demographics + + + | Address | [address] | | | [place] [address] | + + + | Home Phone | | + + + | Preferred Language | Unknown | + + + | Marital Status | Unknown | + + + | Oriental Orthodox Affiliation | Unknown | + + + | Race | Unknown | + + + | Ethnic Group | Unknown | + + + Author + + + | Author | [facility] | | | and [place] | + + + | Organization | [facility] | | | and [place] | + + + | Address | Unknown | + + + | Phone | Unavailable | + + + Care Team Providers + +------+ + | Care Printer Floor Covering Assistant Name | Role | Phone | + +------+ + | Ronnie Treadwell MD | PCP | | + +------+ + Reason for Visit + + + | Reason | Comments | + + + | Follow-up | hcv | + + + Encounter Details +--------+---------+ + + + | Date | Type | Department | Care Team | Description | +--------+---------+ + + + | 01/27/ | Office | [facility] | Hernesto Vazquez DO | Chronic hepatitis C, | | 2019 | Visit | INFECTIOUS DISEASE | [address] | GT 1a, VL 10.5 | | | | [address] | [place] [address] | million IU/mL, | | | | [place], [place] | [phone] | probable cirrhosis | | | | [address] | | (Primary Dx); Other | | | | [phone] | | cirrhosis of liver | | [...] Instructions Patient Instructions Hernesto Vazquez DO - 01/27/2019 2:00 PM PSTUltrasound within the next 2 weeks. We will let you know if labs needed now. Blood test on or after June 09 for test of cure.Electronically signed by Hernesto Vazquez DO at 2:15 PM PST documented in this encounter Progress Notes Hernesto Vazquez DO - 01/27/2019 2:00 PM PST Subjective Patient ID: Sayra Walton is a 63 y.o. female. Chief [...] had an upcoming colonoscopy scheduled for routine [facility], and we contacted her biometrics consultant to request upper endoscopy for variceal scree cece. This has been performed and the patient has been cleared to proceed with treatment. The patient started her 12-week course of Mavyret on December 19 and would have been due for follow-up labs on January 16. She had her labs collected but her local lab ran a genotype instead of a viral load, so she may need to go back to have it redrawn. She has been tired since starting the Cataño. She does note that her right upper quadrant soreness has gone away. She did not know that she needed to schedule an ultrasound. The following elements of the patient's history [...] vitals taken for this visit. Physical Exam Vitals signs reviewed. Constitutional: Appearance: She is well-developed. Skin: General: Skin is warm and dry. Neurological: Mental Status: She is alert and oriented to person, place, and time. Assessment /Plan 1. Chronic hepatitis C, GT 1a, VL 10.5 million IU/mL, probable cirrhosis The patient started her 12-week course of Mavyret on December 19, therefore treatment shoul d be completed on March 12, 2019 as long as there are no missed doses. The patient should return to the lab this week for a viral load to determine adequacy of response. As long as she is doing well, her treatment should be completed on March 12 and she should have foll ow-up labs collected on or after June 09 for test of cure. We will follow-up in June for final recommendations. 2. Other cirrhosis of liver (HCC) The patient was reminded that she will need ongoing regular surveillance for hepatocellular carcinoma due to cirrhosis, which will remain required even if hepatitis C is successfully treated. This will require ultrasound and blood test every 6 months. Ultrasound should be performed within the next 2 weeks. Addendum: AFP is markedly elevated, 15.55 with reference range of 7. The patient should berkowitz ve her ultrasound performed soon as possible, order entered stat. documented in this encoun ter Plan of Treatment + +---------+--------+ + + | Name | Type | Priori | Associated Diagnoses | Order Schedule | | | | ty | | | + +---------+--------+ + + | Hepatitis C RNA, | Lab | Routin | Chronic hepatitis | 1 Occurrences | | Quant, NAAT | | e | C, GT 1a, VL 10.5 | starting 01/27/2019 | | | | | million IU/mL, | until 01/28/2020 | | | | | probable cirrhosis | | + +---------+--------+ + + | US Abdomen Limited | Imaging | STAT | Other cirrhosis of | Expected: | | | | | liver (HCC) | 01/28/2019, Expires: | | | | | | 01/29/2020 | + +---------+--------+ + + documented as of this encounter Visit Diagnoses + + | Diagnosis | + + | Chronic hepatitis C, GT 1a, VL 10.5 million IU/mL, probable cirrhosis - Primary | + + | Other cirrhosis of liver (HCC) | + + documented in this encounter"
--- OUTSIDE RECORDS SUMMARY | ~2019-02-23 | XMS | Encounter Summary ---
Demographics + + + | Address | [address] | | | [place] [address] | + + + | Home Phone [...] | [facility] | | | and [place] | + + + | Organization | [facility] | | | and [place] | + + + | Address | Unknown | + + + | Phone | Unavailable | + + + Care Team Providers + +------+ + | Care Computed Tomography Technician Name | Role | Phone | + +------+ + PCP | Unavailable | + +------+ + Encounter Details +--------+ + + + + | Date | Type | Department | Care Team | Description | +--------+ + + + + | 03/13/ | Orders Only | [facility] | Conversion | | | 2019 | | INFECTIOUS DISEASE | Transaction, | | | | | [address] | Provider Unknown | | | | | [facility] | [phone] | | | | | [address] | | | | | | [phone] | | | +--------+ + + + [...] | + +--------+ + + + | HEPATITIS C, | Routin | 03/13/2018 | | Results for this | | FIBROSURE PANEL | e | 12:00 AM | | procedure are in the | | | | PST | | results section. | + +--------+ + + + documented in this encounter Results Hepatitis C, Fibrosure Panel (03/13/2018 12:00 AM PST) + + + + + + | Component | Value | Ref Range | Performed | Pathologist | | | | | At | Signature | + + + + + + | HCV | | | EXTERNAL | | | FibroSURE | | | LAB | | | Results | | | | | + + + + + + | FIBROSURE | F4 | | EXTERNAL | | | STAGE | | | LAB | | + + + + + + | Necroinflam | 0.9 | | EXTERNAL | | | mat | | | LAB | | | Activity | | | | | | Score | | | | | + + + + + + | Necroinflam | A2/F1Hfxxixd: Equal | | EXTERNAL | | | mat | probability between A2 | | LAB | | | Activity | to A3 | | | | | Grade | | | | | + + + + + + | Alpha | 449 (A) | 131 - 293 | EXTERNAL | | | 2-Macroglob | | | LAB | | | ulins, Qn | | | | | + + + + + + | Haptoglobin | | | EXTERNAL | | | | | | LAB | | + + + + + + | Apolipoprot | | | EXTERNAL | | | ein A-1 | | | LAB | | + + + + + + | Bilirubin, | | mg/dL | EXTERNAL | | | Total | | | LAB | | + + + + + + | Gamma | 297 (A) | 7 - 33 | EXTERNAL | | | Glutamyl | | | LAB | | | Transferase | | | | | + + + + + + | ALT (SGPT) | 95 (A) | 5 - 40 | EXTERNAL | | | P5P | | | LAB | | + + + + + + + + | Specimen | + + | Blood specimen | | (specimen) | + + + + + | Impressions | Performed At | + + + | FIBROSURE: AST Value: 126 Ref. Range:9-40 U/L | EXTERNAL LAB | | BUN: Value: 13 Ref. Range: 7-20 mg/dL | | | Platelet count: Value: 90 k/uL Prothrombin Index: | | | Value: 74 Ref. Range: 9-120% Fibrometer Score: 0.99 | | | Cirrhometer Score: 0.88 Fibrosis Class: 0.90 | | + + + + +---------+ + + | Performing | Address | City/State/Zipcode | Phone Number | | Organization | | | | + +---------+ + + | EXTERNAL LAB | | | | + +---------+ + + documented in this encounter Visit Diagnoses Not on filedocumented in this encounter"
--- OUTSIDE RECORDS SUMMARY | ~2019-02-23 | XMS | Encounter Summary ---
Demographics + + + | Address | [address] | | | [place] [address] | + + + | Home Phone | | + + + | Preferred Language | Unknown | + + + | Marital Status | Unknown | + + + | Latter-Day Affiliation | Unknown | + + + | Race | Unknown | + + + | Ethnic Group | Unknown | + + + Author + + + | Author | [facility] | | | and [place] | + + + | Organization | [facility] | | | and [place] | + + + | Address | Unknown | + + + | Phone | Unavailable | + + + Care Team Providers + +------+ + | Care Nuclear Fuels Research Engineer Name | Role | Phone | + [...] + + | 01/27/ | Office | [facility] | Hernesto Vazquez DO | Chronic hepatitis C, | | 2019 | Visit | INFECTIOUS DISEASE | [address] | GT 1a, VL 10.5 | | | | [address] | [place] [address] | million IU/mL, | | | | [place], [place] | [phone] | probable cirrhosis | | | | [address] | | (Primary Dx); Other | | | | [phone] | | cirrhosis of liver | | [...] had an upcoming colonoscopy scheduled for routine [facility], and we contacted her route contractor to request upper endoscopy for variceal scree [...] She has been tired since starting the Mcdonough. She does note that her right upper [...]
--- OUTSIDE RECORDS SUMMARY | ~2019-02-23 | XMS | Encounter Summary ---
Demographics + + + | Address | [address] | | | [place] [address] | + + + | Home Phone | | + + + | Preferred Language | Unknown | + + + | Marital Status | Unknown | + + + | Rastafarian Affiliation | Unknown | + + + | Race | Unknown | + + + | Ethnic Group | Unknown | + + + Author + + + | Author | [facility] | | | and [place] | + + + | Organization | [facility] | | | and [place] | + + + | Address | Unknown | + + + | Phone | Unavailable | + + + Care Team Providers + +------+ + | Care Service Electrician Name | Role | Phone | + +------+ + | Ronnie Treadwell MD | PCP | | + +------+ + Reason for Visit + + + | Reason | Comments | + + + | Care Coordination | US Report Request. [facility] | + + + Encounter Details +--------+ + + + + | Date | Type | Department | Care Team | Description | +--------+ + + + + | 02/11/ | Telephone | [facility] | Carol Canales, | Care Coordination | | 2020 | | INFECTIOUS DISEASE | Wash Driller | (US Report Request. | | | | [address] | | [facility]) | | | | [place], [place] | | | | | | [address] | | | | | | [phone] | | | +--------+ + + + [...]
--- OUTSIDE RECORDS SUMMARY | ~2019-02-23 | XMS | Encounter Summary ---
Demographics + + + | Address | [address] | | | [place] [address] | + + + | Home Phone | | + + + | Preferred Language | Unknown | + + + | Marital Status | Unknown | + + + | Orthodoxy Affiliation | Unknown | + + + | Race | Unknown | + + + | Ethnic Group | Unknown | + + + Author + + + | Author | [facility] | | | and [place] | + + + | Organization | [facility] | | | and [place] | + + + | Address | Unknown | + + + | Phone | Unavailable | + + + Care Team Providers + +------+ + | Care Supervisor Body Assembly Name | Role | Phone | + +------+ + | Ronnie Treadwell MD | PCP | | + +------+ + Encounter Details +--------+ + + + + | Date | Type | Department | Care Team | Description | +--------+ + + + + | 02/19/ | Orders Only | [facility] | Conversion | | | 2019 | | [address]VERSION [address] | Transaction, | | | | [address] | Provider Unknown | | | | | [place], [place] | [phone] | | | | | [address] | | | | | | [phone] | | | +--------+ + + + [...]
--- OUTSIDE RECORDS SUMMARY | ~2019-02-23 | XMS | Encounter Summary ---
Demographics + + + | Address | [address] | | | [place] [address] | + + + | Home Phone | | + + + | Preferred Language | Unknown | + + + | Marital Status | Unknown | + + + | Gnosticism Affiliation | Unknown | + + + | Race | Unknown | + + + | Ethnic Group | Unknown | + + + Author + + + | Author | [facility] | | | and [place] | + + + | Organization | [facility] | | | and [place] | + + + | Address | Unknown | + + + | Phone | Unavailable | + + + Care Team Providers + +------+ + | Care Vacuum Pan Operator Name | Role | Phone | + [...] + + | 02/11/ | Telephone | [facility] | Carol Canales, | Care Coordination | | 2020 | | INFECTIOUS DISEASE | Biological Engineer | (US Report Request. | | | | [address] | | [facility]) | | | | [place], [place] | | | | | | [address] | | | | | | [phone] | | | +--------+ + + + [...]
--- OUTSIDE RECORDS SUMMARY | ~2019-02-23 | XMS | Clinical Summary ---
Demographics + + + | Address | [address] | | | [place] [address] | + + + | Home Phone | | + + + | Preferred Language | Unknown | + + + | Marital Status | Unknown | + + + | Denominational Affiliation | Unknown | + + + | Race | Unknown | + + + | Ethnic Group | Unknown | + + + Author + + + | Author | [facility] | | | and [place] | + + + | Organization | [facility] | | | and [place] | + + + | Address | Unknown | + + + | Phone | Unavailable | + + + Care Team Providers + +------+ + | Care Paper Cone Grader Name | Role | Phone | + [...] Coordination | | 2019 | | | National Park Ranger | (F/U Appt and Orders | | | | | | ) | +--------+ + + + + | 02/14/ | Documentati | Infectious Diseases | Hernesto Vazquez DO | | | 2019 | on | | | | +--------+ + + + + | 02/11/ | Telephone | Infectious Diseases | Carol Canales, | Care Coordination | 2019 | | | National Park Ranger | (US Report Request. | | | [...] (Lab | | 2018 | | | National Park Ranger | Results/ US STAT | | | [...] +--------+ +---------+------+ | PREMERA | PREMER | [id number] | 02/09/19 | [phone] | | PPO [...] | [birth year]/ | | [address] GEOTECHNICAL OPERATING ENGINEER | | | al/Fam | | 1956 | [phone] | [place] [address] | | | [place] | | | 5 (Home) | | + +--------+ +--------+ + + Advance Directives + + + + + | Type | Date Recorded | Patient | Explanation | | | | Vice President Biostatistics | | + + + + + | Power of | | | | | Flat Machine Cutter | | | | + + + + + | Advance | | | | | Directive | | | | + + + + +
--- OUTSIDE RECORDS SUMMARY | ~2019-02-23 | XMS | Encounter Summary ---
Demographics + + + | Address | [address] | | | [place] [address] | + + + | Home Phone | | + + + | Preferred Language | Unknown | + + + | Marital Status | Unknown | + + + | Anabaptism Affiliation | Unknown | + + + | Race | Unknown | + + + | Ethnic Group | Unknown | + + + Author + + + | Author | [facility] | | | and [place] | + + + | Organization | [facility] | | | and [place] | + + + | Address | Unknown | + + + | Phone | Unavailable | + + + Care Team Providers + +------+ + | Care Word Processor Technician Name | Role | Phone | + +------+ + | Ronnie Treadwell MD | PCP | | + +------+ + Reason for Visit + + + | Reason | Comments | + + + | Care Coordination | 12 wk Ikeret Application | + + + Encounter Details +--------+ + + + + | Date | Type | Department | Care Team | Description | +--------+ + + + + | 11/18/ | Telephone | [facility] | Teofilo Benito, | Care Coordination | | 2019 | | INFECTIOUS DISEASE | Heel Wheeler | (12 wk Haritha | | | | [address] | | Application) | | | | [place] | | | | | | [address] | | | | | | [phone] | | | +--------+ + + + [...]
--- OUTSIDE RECORDS SUMMARY | ~2019-02-23 | XMS | Encounter Summary ---
Demographics + + + | Address | [address] | | | [place] [address] | + + + | Home Phone | | + + + | Preferred Language | Unknown | + + + | Marital Status | Unknown | + + + | Anabaptist Affiliation | Unknown | + + + | Race | Unknown | + + + | Ethnic Group | Unknown | + + + Author + + + | Author | [facility] | | | and [place] | + + + | Organization | [facility] | | | and [place] | + + + | Address | Unknown | + + + | Phone | Unavailable | + + + Care Team Providers + +------+ + | Care Electric Blanket Packer Name | Role | Phone | + [...] + + | 11/18/ | Telephone | [facility] | Teofilo Benito, | Care Coordination | | 2019 | | INFECTIOUS DISEASE | Sanitation Inspector | (12 wk Haritha | | | | [address] | | Application) | | | | [place] | | | | | | [address] | | | | | | [phone] | | | +--------+ + + + [...]
--- OUTSIDE RECORDS SUMMARY | ~2019-02-23 | XMS | Encounter Summary ---
Demographics + + + | Address | [address] | | | [place] [address] | + + + | Home Phone | | + + + | Preferred Language | Unknown | + + + | Marital Status | Unknown | + + + | Episcopal Affiliation | Unknown | + + + | Race | Unknown | + + + | Ethnic Group | Unknown | + + + Author + + + | Author | [facility] | | | and [place] | + + + | Organization | [facility] | | | and [place] | + + + | Address | Unknown | + + + | Phone | Unavailable | + + + Care Team Providers + +------+ + | Care Master At Arms Name | Role | Phone | + +------+ + | Ronnie Treadwell MD | PCP | | + +------+ + Reason for Visit + + + | Reason | Comments | + + + | Care Coordination | Record request | + + + Encounter Details +--------+ + + + + | Date | Type | Department | Care Team | Description | +--------+ + + + + | 11/17/ | Telephone | [facility] | Teofilo Benito, | Care Coordination | | 2019 | | INFECTIOUS DISEASE | [place]er | (Record request) | | | | [address] | | | | | | [place] | | | | | | [address] | | | | | | [phone] | | | +--------+ + + + [...]
--- OUTSIDE RECORDS SUMMARY | ~2019-02-23 | XMS | Encounter Summary ---
Demographics + + + | Address | [address] | | | [place] [address] | + + + | Home Phone | | + + + | Preferred Language | Unknown | + + + | Marital Status | Unknown | + + + | Yarsanism Affiliation | Unknown | + + + | Race | Unknown | + + + | Ethnic Group | Unknown | + + + Author + + + | Author | [facility] | | | and [place] | + + + | Organization | [facility] | | | and [place] | + + + | Address | Unknown | + + + | Phone | Unavailable | + + + Care Team Providers + +------+ + | Care Research Physiologist Name | Role | Phone | + +------+ + | Ronnie Treadwell MD | PCP | | + +------+ + Encounter Details +--------+ + + + + | Date | Type | Department | Care Team | Description | +--------+ + + + + | 09/24/ | Orders Only | [facility] | Hernesto Vazquez DO | Chronic viral | | 2019 | | INFECTIOUS DISEASE | [address] | hepatitis C (HCC); | | | | [address] | [place] [address] | Other cirrhosis of | | | | [place], [place] | [phone] | liver (HCC) | | | | [address] | | | | | | [phone] | | | +--------+ + + + [...] as of this encounter Plan of Treatment + +------+--------+ + + | Name | Type | Priori | Associated Diagnoses | Order Schedule | | | | ty | | | + +------+--------+ + + | Hepatitis C, | Lab | Routin | Chronic viral | Expected: | | Fibrosure Panel | | e | hepatitis C (HCC) | 02/03/2019, Expires: | | | | | Other cirrhosis of | 04/14/2019 | | | | | liver (HCC) | | + +------+--------+ + + documented as of this encounter Visit Diagnoses + + | Diagnosis | + + | Chronic viral hepatitis C (HCC) Chronic hepatitis C without mention of hepatic coma | + + | Other cirrhosis of liver (HCC) | + + documented in this encounter"
--- OUTSIDE RECORDS SUMMARY | ~2019-02-23 | XMS | Encounter Summary ---
Demographics + + + | Address | [address] | | | [place] [address] | + + + | Home Phone | | + + + | Preferred Language | Unknown | + + + | Marital Status | Unknown | + + + | Lutheran Affiliation | Unknown | + + + | Race | Unknown | + + + | Ethnic Group | Unknown | + + + Author + + + | Author | [facility] | | | and [place] | + + + | Organization | [facility] | | | and [place] | + + + | Address | Unknown | + + + | Phone | Unavailable | + + + Care Team Providers + +------+ + | Care Cargo And Ramp Services Manager Name | Role | Phone | [...] + + | 02/04/ | Documentati | [facility] | Hernesto Vazquez DO | Results (Hepatic | | 2019 | on | INFECTIOUS DISEASE | [address] | Function Panel ) | | | | [address] | [place] [address] | | | | | [place], [place] | [phone] | | | | | [address] | | | | | | [phone] | | | +--------+ + + + [...] of this encounter Progress Notes Awilda Thao, Tire Service Technician - 02/04/2019 10:10 AM PSTReceived labs for Hepat ic Function Panel on 01/27/2019 from [facility]. Abstracted into Parrable and sent to scan. Awilda Cuenca CMA. [...]
--- OUTSIDE RECORDS SUMMARY | ~2019-02-23 | XMS | Encounter Summary ---
Demographics + + + | Address | [address] | | | [place] [address] | + + + | Home Phone | | + + + | Preferred Language | Unknown | + + + | Marital Status | Unknown | + + + | Synagogue Affiliation | Unknown | + + + | Race | Unknown | + + + | Ethnic Group | Unknown | + + + Author + + + | Author | [facility] | | | and [place] | + + + | Organization | [facility] | | | and [place] | + + + | Address | Unknown | + + + | Phone | Unavailable | + + + Care Team Providers + +------+ + | Care Environmental Compliance Engineer Name | Role | Phone | [...] Provider Unknown | | | | | [place], [place] | [phone] | | | | | [address] | | | | | | [phone] | | | +--------+ + + + [...]
--- OUTSIDE RECORDS SUMMARY | ~2019-02-23 | XMS | Encounter Summary ---
Demographics + + + | Address | [address] | | | [place] [address] | + + + | Home Phone | | + + + | Preferred Language | Unknown | + + + | Marital Status | Unknown | + + + | Orthodoxy Affiliation | Unknown | + + + | Race | Unknown | + + + | Ethnic Group | Unknown | + + + Author + + + | Author | [facility] | | | and [place] | + + + | Organization | [facility] | | | and [place] | + + + | Address | Unknown | + + + | Phone | Unavailable | + + + Care Team Providers + +------+ + | Care Customer Service Assistant Name | Role | Phone | + +------+ + | Ronnie Treadwell MD | PCP | | + +------+ + Encounter Details +--------+ + + + + | Date | Type | Department | Care Team | Description | +--------+ + + + + | 09/24/ | Orders Only | [facility] | Hernesto Vazquez DO | Chronic viral | | 2019 | | INFECTIOUS DISEASE | [address] | hepatitis C (HCC); | | | | [address] | [place] [address] | Other cirrhosis of | | | | [place], [place] | [phone] | liver (HCC) | | | | [address] | | | | | | [phone] | | | +--------+ + + + [...]
--- OUTSIDE RECORDS SUMMARY | ~2019-02-23 | XMS | Encounter Summary ---
Demographics + + + | Address | [address] | | | [place] [address] | + + + | Home Phone [...] Team Providers + +------+ + | Care Chief Operator Name | Role | Phone | [...] + + | 11/17/ | Office | [facility] | Hernesto Vazquez DO | Chronic hepatitis C, | | 2019 | Visit | INFECTIOUS DISEASE | [address] | GT 1a, VL 10.5 | | | | [address] | [place] [address] | million IU/mL, | | | | [place], [place] | [phone] | probable cirrhosis | | | | [address] | | (Primary Dx); Other | | | | [phone] | | cirrhosis of liver | | [...] medication and when to have your labs [facility]. documented in this encounter Progress Notes Hernesto Vazquez DO - 11/17/2018 3:20 PM PDT Subjective Patient ID: Sayra Walton is a [...] had an upcoming colonoscopy scheduled for routine [facility], and we contacted her supervisor braiding to request upper endoscopy for variceal walter [...]
--- OUTSIDE RECORDS SUMMARY | ~2019-02-23 | XMS | Encounter Summary ---
Demographics + + + | Address | [address] | | | [place] [address] | + + + | Home Phone | | + + + | Preferred Language | Unknown | + + + | Marital Status | Unknown | + + + | Sikhism Affiliation | Unknown | + + + [...] Team Providers + +------+ + | Care Glove Machine Operator Name | Role | Phone | [...] + + | 11/17/ | Telephone | [facility] | Teofilo Benito, | Care Coordination | | 2019 | | INFECTIOUS DISEASE | Visual Educator | (Record request) | | | | [address] | | | | | | [place] | | | | | | [address] | | | | | | [phone] | | | +--------+ + + + [...]
--- OUTSIDE RECORDS SUMMARY | ~2019-02-23 | XMS | Encounter Summary ---
Demographics + + + | Address | [address] | | | [place] [address] | + + + | Home Phone | | + + + | Preferred Language | Unknown | + + + | Marital Status | Unknown | + + + | Catholic Affiliation | Unknown | + + + | Race | Unknown | + + + | Ethnic Group | Unknown | + + + Author + + + | Author | [facility] | | | and [place] | + + + | Organization | [facility] | | | and [place] | + + + | Address | Unknown | + + + | Phone | Unavailable | + + + Care Team Providers + +------+ + | Care Buffing Machine Operator Name | Role | Phone | + +------+ + PCP | Unavailable | + +------+ + Encounter Details +--------+ + + + + | Date | Type | Department | Care Team | Description | +--------+ + + + + | 03/13/ | Orders Only | [facility] | Conversion | | | 2019 | | INFECTIOUS DISEASE | Transaction, | | | | | [address] | Provider Unknown | | | | | [facility] | [phone] | | | | | [address] | | | | | | [phone] | | | +--------+ + + + [...] + + + + | Necroinflam | A2/K9Ypholxe: Equal | | EXTERNAL | | | [...]
--- OUTSIDE RECORDS SUMMARY | ~2019-02-23 | XMS | Encounter Summary ---
Demographics + + + | Address | [address] | | | [place] [address] | + + + | Home Phone | | + + + | Preferred Language | Unknown | + + + | Marital Status | Unknown | + + + | Sikh Affiliation | Unknown | + + + | Race | Unknown | + + + | Ethnic Group | Unknown | + + + Author + + + | Author | [facility] | | | and [place] | + + + | Organization | [facility] | | | and [place] | + + + | Address | Unknown | + + + | Phone | Unavailable | + + + Care Team Providers + +------+ + | Care Livestock Farmers Name | Role | Phone | + [...] | | | | [address] | [place], [place] | | | | | [place], [place] | [address] | | | | | [address] | | | | | | [phone] | | | +--------+ + + + [...] 0.96 m/s | | | MV Dec Dorado: 2.58 m/s2 MV DecT: 324.80 ms MV E Mg: 0.83 | | | m/s MV E/A Ratio: 0.86 MV PHT: 94.19 ms MVA By PHT: 2.33 | | | cm2 Septal e': 0.04 m/s Septal E/e': 19.65 Lateral e': | | | 0.05 m/s Lateral E/e': 16.27 RAP: 5 mmHg RVSP: 25.06 mmHg | | | TR maxP.06 mmHg TR Vmax: 2.23 m/s System Developer Associate Manager: REINALDO | | | Authenticated by: Jovan Rangel Report Date/Time: 02-11-2018 14:45:5 | | | | | + + + + + | Procedure Note | + + | Ben Suero Conversion - 09/30/2018 4:51 PM PDT Patient Name: Ranjeet Walton of | | : 1955 Performing Physician: Jovan | | Adrimount perry INDICATIONS------ | | -----Valvular heart disease CONCLUSIONS [...] cmLVPWd: 0.80 | | cmLVOT Area: 3.55 [id number] Diam: 2.12 cm%FS: 36.51 %EF(Teich): 66.17 %ESV(Teich): [...] (A-L): 19.60 ml/m2LAAs A2C: | | 12.24 [id number] A-L A2C: 29.98 mlLALs A2C: 4.24 cmLAAs A4C: 15.20 [id number] A-L A4C: | | 39.10 mlLALs A4C: 5.02 cmRAAs: 12.16 [id number] A-L: 28.10 mlRAESV MOD: 27.02 | | mlRALs: 4.46 cmTAPSE: 3.02 cmAV maxP.90 mmHgAV meanP.64 mmHgAV Vmax: | | 1.99 m/Junior Vmean: 1.27 m/Junior VTI: 37.73 cmAVA Vmax: 1.98 cm2AVA (VTI): 2.21 | | mh2DUTE Vmax: 0.00 cm2/m2AVAI (VTI): 0.00 cm2/m2LVOT maxP.95 mmHgLVOT meanPG: | | 3.12 mmHgLVSI Dopp: 44.01 ml/m2LVSV Dopp: 83.63 mlLVOT Vmax: 1.11 m/sLVOT Vmean: | | 0.84 m/sLVOT VTI: 23.55 cmMV A Mg: 0.96 m/sMV Dec Dor[place]: 2.58 m/s2MV DecT: | | 324.80 msMV E Mg: 0.83 m/sMV E/A Ratio: 0.86MV PHT: 94.19 msMVA By PHT: 2.33 | | kj9Jnqaun e': 0.04 m/sSeptal E/e': 19.65Lateral e': 0.05 m/sLateral E/e': | | 16.27RAP: 5 mmHgRVSP: 25.06 mmHgTR maxP.06 mmHgTR Vmax: 2.23 m/s | | System Developer Associate Manager: DHAuthenticated by: Jovan Mockort Date/Time: 02-11-2018 14:45:5 [...] A Mg: 0.96 m/s | |MV Dec [place]: 2.58 m/s2 | |MV DecT: 324.80 ms [...] |TR Vmax: 2.23 m/s | | | |System Developer Associate Manager: REINALDO | |Authenticated by: Jovan Rangel | [...]
--- OUTSIDE RECORDS SUMMARY | ~2019-02-23 | XMS | Encounter Summary ---
Demographics + + + | Address | [address] | | | [place] [address] | + + + | Home Phone | | + + + | Preferred Language | Unknown | + + + | Marital Status | Unknown | + + + | Cheondoism Affiliation | Unknown | + + + | Race | Unknown | + + + | Ethnic Group | Unknown | + + + Author + + + | Author | [facility] | | | and [place] | + + + | Organization | [facility] | | | and [place] | + + + | Address | Unknown | + + + | Phone | Unavailable | + + + Care Team Providers + +------+ + | Care Industrial Design Engineer Name | Role | Phone | + +------+ + | Ronnie Treadwell MD | PCP | | + +------+ + Encounter Details +--------+ + + + + | Date | Type | Department | Care Team | Description | +--------+ + + + + | 02/14/ | Documentati | [facility] | Hernesto Vazquez DO | | | 2020 | on | INFECTIOUS DISEASE | [address] | | | | | [address] | [place] [address] | | | | | [place], [place] | [phone] | | | | | [address] | | | | | | [phone] | | | +--------+ + + + [...]
--- OUTSIDE RECORDS SUMMARY | ~2019-02-23 | XMS | Encounter Summary ---
Demographics + + + | Address | [address] | | | [place] [address] | + + + | Home Phone | | + + + | Preferred Language | Unknown | + + + | Marital Status | Unknown | + + + | Advent Affiliation | Unknown | + + + | Race | Unknown | + + + | Ethnic Group | Unknown | + + + Author + + + | Author | [facility] | | | and [place] | + + + | Organization | [facility] | | | and [place] | + + + | Address | Unknown | + + + | Phone | Unavailable | + + + Care Team Providers + +------+ + | Care Advance Scout Name | Role | Phone | + [...] + + | 02/14/ | Telephone | [facility] | Carol Canales, | Care Coordination | | 2020 | | INFECTIOUS DISEASE | Fire Controlman | (F/U Appt and Orders | | | | [address] | | ) | | | | [place] | | | | | | [address] | | | | | | [phone] | | | +--------+ + + + [...]
--- OUTSIDE RECORDS SUMMARY | ~2019-02-23 | XMS | Clinical Summary ---
Demographics + + + | Address | [address] | | | [place] [address] | + + + | Home Phone | | + + + | Preferred Language | Unknown | + + + | Marital Status | Unknown | + + + | Sabianism Affiliation | Unknown | + + + | Race | Unknown | + + + | Ethnic Group | Unknown | + + + Author + + + | Author | [facility] ([facility] | | | 09-25-18) | + + + | Organization | [facility] (Historical as [facility] | | | 09-25-18) [...] Team Providers + +------+ + | Care Wood Bucker Name | Role | Phone | + [...] +---------+--------+ +------+-------+---------+ | [place] | BLUE | [id number] | | | | | | CROSS [...] Self | [birth year] | Home: | [address] | | | al/Fam | | [phone] [address] [place] | | | [place] | | | [phone] | + +--------+ +--------+ + +
[~2019-02-23 15:57] MED LIST changes: +COREG6.25 MG PO; +LOSARTAN-HCTZ1 EACH PO
--- NOTE | 2019-02-23 19:30 | EKG ---
[facility] [address] [place] [address] Signed Marked sinus bradycardia Left axis deviation Left ventricular hypertrophy with QRS widening Nonspecific ST depression in V4-V6. Abnormal ECG When compared with ECG of 30-SEP-2018 16:31, Vent. rate has decreased BY 27 BPM Criteria for Anterior infarct are no longer present QT has shortened Confirmed by DEB CARBAJAL MD ([id number]) on 02/23/2019 7:29:55 PM Electronically Signed By: DEB CARBAJAL MD 02/23/19 1930 PATIENT NAME: ANITA HERNADEZ Electrocardiogram DATE OF : 59 PHYSICIAN: DEB CARBAJAL MD REPORT #: [id number] REPORT IS CONFIDENTIAL AND NOT TO BE RELEASED WITHOUT AUTHORIZATION
== END 2019-02-23 23:45 | disposition short-term general hospital (02) ==
LOC: ED 15:57
PROC: 0T9B70Z Drainage of Bladder with Drainage Device, Via Natural or Artificial Opening (ICD-10-PCS; principal; 2019-02-23)
DX: R09.2 Respiratory arrest (principal); I10 Essential (primary) hypertension; Z87.891 Personal history of nicotine dependence
CPT/HCPCS: 31720; 36600; 51702; 70450; 70490; 71045; 80048; 80053; 81001; 82803; 83605; 83880; 84484; 85025; 85379; 93005; 93010; 94002; 99285-25; J0171; J2704; J3010; J7030; J7060